=== PATIENT | male | born 1985 | race Caucasian/White ===

== ENCOUNTER 2022-03-05 14:50 | Emergency (ER) | payer OTHER, SELFPAY ==
[2022-03-05] VITALS (12 sets, daily range): BP systolic 114–129; BP diastolic 71–93; PULSE 62–75; RESP 10–20; TEMP 36.5–37.1; O2SAT 96–98
--- NOTE | ~2022-03-05 | XR_ITS ---
EXAMINATION: XR chest 1V portable 03/05/2022 15:42 INDICATION: Central chest pain PROCEDURE: AP portable chest COMPARISON: No prior studies for comparison. FINDINGS: The lungs are clear. The cardiomediastinal silhouette is within normal limits. There are no pleural effusions. There is no pneumothorax suspected. IMPRESSION: 1: NO ACUTE CARDIOPULMONARY DISEASE. Reviewed, dictated and finalized at location B.
--- NOTE | 2022-03-05 14:54 | ECG_ITS ---
Measurements Intervals [place] Rate: 76 P: 63 AK: 170 QRS: 78 QRSD: 105 T: 38 QT: 363 QTc: 409 Interpretive Statements SINUS RHYTHM WITH SINUS ARRHYTHMIA NO PREVIOUS ECG AVAILABLE FOR COMPARISON Electronically Signed On 03-05-2022 20:30:58 CDT by Lorie De La Garza M.D.
--- NOTE | 2022-03-05 15:07 | ED.CHESTPAIN ---
HPI - Chest Pain General Chief Complaint: Chest Pain Stated Complaint: chest pain Time Seen by Provider: 03/05/22 15:08 Source: patient Mode of arrival: ambulatory History of Present Illness HPI narrative: 36-year-old male a history of vaping, multiple stresses( going through a divorce, stressful work) has been having -- substernal chest pain off and on for the past 3-4 weeks. Pain is unprovoked and occasionally radiates to his left jaw. No nausea/ vomiting. No shortness of breath. Pain usually resolves within 15 minutes. -- Today the patient developed substernal chest pain which was unprovoked, nonradiating and without any lightheadedness/shortness of breath. By the time the patient reached the ER pain had decreased considerably. MD complaint: chest pain Onset (ago): hour(s) ( Started 2 hours ago. currently pain-free) Timing of current episode: episodic Prior episodes: Yes Onset: during rest Pain location: substernal Pain radiation: neck Severity: moderate Pain scale (0-10): 7 Quality: heaviness and fullness Relieving factors: nothing Exacerbating factors: nothing Risk Factors Coronary artery disease risk factors: smoking history Thoracic aortic dissection risk factors: none Related Data Home Medications Medication Instructions Recorded Confirmed No Home Medications 03/05/22 03/05/22 Allergies Allergy/AdvReac Type Severity Reaction Status Date / Time Shrimp Allergy Unknown Swelling Uncoded 03/05/22 15:01 of Lip/Tongue/Throat Review of Systems Review of Systems: All systems reviewed & are unremarkable except as noted in HPI and below Constitutional: Constitutional: Reports as per HPI and Reports no additional constitutional complaints Eyes: Eyes: Reports as per HPI and Reports no additional eye complaints ENT: Reports system reviewed and no additional complaints, except as documented and Reports as per HPI Cardiovascular: Cardiovascular: Reports as per HPI, Reports no additional cardiovascular complaints and Reports chest pain Respiratory: Respiratory: Reports as per HPI and Reports no additional respiratory complaints Gastrointestinal: Gastrointestinal: Reports as per HPI and Reports no additional gastrointestinal complaints Genitourinary: Genitourinary: Reports no additional male genitourinary complaints and Reports as per HPI Musculoskeletal: Musculoskeletal: Reports no additional musculoskeletal complaints and Reports as per HPI Integumentary/Breasts: Skin/Breast: Reports system reviewed and no additional complaints, except as docu and Reports as per HPI Neurologic: Reports system reviewed and no additional complaints, except as documented and Reports as per HPI Psychiatric: Psychiatric: Reports no additional psychiatric complaints and Reports as per HPI Endocrine: Endocrine: Reports no additional endocrine complaints and Reports as per HPI Hematologic/Lymphatic: Hematologic/Lymphatic: Reports no additional hematologic/lymphatic complaints and Reports as per HPI Allergic/Immunologic: Allergic/Immunologic: Reports no additional allergic/immunologic complaints and Reports as per HPI Exam Const: General: cooperative, healthy appearing, comfortable, no acute distress and anxious Orientation/consciousness: oriented to person, oriented to place and oriented to time Limitations: no limitations HENMT: Head: normal to inspection Ears: hearing grossly normal bilaterally and external ears normal General nose exam: Normal external nose present Face and sinus: normal facial exam and sinuses nontender Mouth: Yes Normal oral and palatal mucosa present, Yes lip normal, Yes tongue normal and Yes moist mucous membranes abnormal Throat: posterior oropharynx normal Eyes: General: appearance normal, both eyes and all related structures Alignment and Position: alignment normal Periorbital: periorbital findings normal Eyelids: eyelids normal Conjunctivae: conjunctivae normal Sclera: sclerae micaela
[2022-03-05 15:38] LABS: Basophils Absolute Auto 0.03 K/mm3 (0.00-0.10); Basophils Percent Auto 0.5 % (0.0-1.0); Eosinophils Absolute Auto 0.27 K/mm3 (0.02-0.50); Eosinophils Percent Auto 4.1 % (1.0-6.0); Hematocrit 46.2 % (40.0-54.0); Hemoglobin 15.9 g/dL (14.0-18.0); Immature Granulocyte Absolute 0.01 K/mm3 (0.00-0.00); Immature Granulocyte Percent A 0.2 % (0.0-0.0); Lymphocytes Absolute Auto 1.66 K/mm3 (1.10-4.50); Lymphocytes Percent Auto 25.4 % (18.0-42.0); Mean Corpuscular HGB Conc 34.4 g/dL (32.0-36.0); Mean Corpuscular Hemoglobin 30.8 pg (27.0-31.0); Mean Corpuscular Volume 89.4 fL (78.0-102.0); Mean Platelet Volume 8.8 fl (8.7-11.0); Monocytes Absolute Auto 0.51 K/mm3 (0.10-0.90); Monocytes Percent Auto 7.8 % (2.0-11.0); Neutrophils Absolute Auto 4.1 K/mm3 (1.7-7.2); Platelet Count Result 244 K/mm3 (150-420); Red Blood Count 5.17 M/mm3 (4.70-6.10); Red Cell Distribution Width 12.7 % (11.6-14.4); White Blood Count 6.5 K/mm3 (4.8-10.8)
[2022-03-05 15:52] LABS: Prothrombin Time 10.6 Seconds (9.50-12.10)
--- NOTE | 2022-03-05 15:55 | PC.NURSE ---
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 Clarified their conversation. 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
[2022-03-05 16:04] LABS: Alanine Aminotransferase 23 U/L (16-63); Albumin Level 3.7 g/dL (3.4-5.0); Alkaline Phosphatase 76 U/L (46-116); Anion Gap 9 mmol/L (8-16); Aspartate Amino Transferase 19 U/L (15-37); Bilirubin,Total 0.3 mg/dL (0.00-1.00); Blood Urea Nitrogen 8 mg/dL (7-18); Carbon Dioxide 27 mmol/L (21-32); Chloride 104 mmol/L (98-108); Estimated CRCL calculation 109 ml/min; Estimated Glomerular Filt Rate > 60; Glucose 98 mg/dL (70-99); Lipase 110 U/L (73-393); Osmolality Calculated 288 mOsm/kg (285-295); Potassium 3.7 mmol/L (3.5-5.1); Sodium 140 mmol/L (136-145); Thyroid Stimulating Hormone 1.44 uIU/mL (0.36-3.74); Total Protein 6.9 g/dL (6.4-8.2); Troponin I 5.3 ng/L (0.00-60.4)
== END 2022-03-05 16:35 | disposition home or self-care (01) ==
PROVIDERS: Emergency Provider Internal Medicine Critical Care Medicine
DX: R07.9 Chest pain, unspecified (principal)
CPT/HCPCS: 36415; 71045; 80053; 83690; 84443; 84484; 85025; 85610; 85730; 93005; 99284

== ENCOUNTER 2022-11-24 18:46 | Emergency (ER) | payer OTHER, SELFPAY ==
[2022-11-24 18:52] VITALS: BP 134/74; PULSE 102; RESP 16; TEMP 36.7; O2SAT 100
--- NOTE | 2022-11-24 18:53 | ED.GENADULT ---
HPI - General Adult General Chief complaint: Urogenital-Male Stated complaint: Urinary Problem Source: patient and RN notes reviewed History of Present Illness HPI narrative: 37-year-old male presents to urgent care with complaints of right lower back pain x1 week. Patient denies any radiation of pain. Denies any abdominal pain, vomiting, or nausea. Denies any fevers or chills. Patient states he has had some discomfort with urination recently. Some parts of this dictation were generated by voice recognition software and may contain typographical and/or grammatical inaccuracies. Related Data Home Medications Medication Instructions Recorded Confirmed No Home Medications 03/05/22 03/05/22 Allergies Allergy/AdvReac Type Severity Reaction Status Date / Time Shrimp Allergy Unknown Swelling Uncoded 03/05/22 15:01 of Lip/Tongue/Throat Review of Systems Review of Systems: CONSTITUTIONAL: Denies fever, chills, or sweats. EYES: Denies visual changes, redness, or discharge. ENT: Denies otalgia and sore throat CARDIOVASCULAR: Denies chest pain, palpitations, or edema. RESPIRATORY: Denies cough or dyspnea. GASTROINTESTINAL: Denies abdominal pain, nausea, vomiting, or diarrhea. GENITOURINARY: Denies dysuria or hematuria. SKIN: Denies rash or itching. MUSCULOSKELETAL: Right lower back pain NEUROLOGIC: Denies headache, numbness, or weakness. PMFSH Comments At the time of my signature, I reviewed and agree with the nursing past medical, surgical, social, and family history. There is no relevant family history pertinent to the patient complaint. Exam Narrative: GENERAL: This is a well-nourished, well-developed patient, in no apparent distress. HEAD: normocephalic, atraumatic. EYES: PERRL. Sclera clear/white. Vision is grossly intact. EARS: External ears normal, auditory canals clear and without drainage, TMs normal without perforation. Hearing grossly intact. NOSE: External nose normal with no obvious nasal discharge, nares without redness, no rhinorrhea. THROAT: Mucous membranes moist, posterior pharynx clear. NECK: Neck supple, non-tender without lymphadenopathy, masses or thyromegaly. CARDIOVASCULAR: Regular rate and rhythm without murmurs, gallops, or rubs. RESPIRATORY: Clear to auscultation. Breath sounds equal bilaterally. No wheezes, rales, or rhonchi. GASTROINTESTINAL: Abdomen soft, non-tender, nondistended. Bowel sounds are active. No hepato-splenomegaly, or palpable masses. No guarding. SKIN: warm, intact with no suspicious lesions or rash, good texture and turgor. NEURO: awake, alert, and oriented to person, place and time. There were no obvious focal neurologic abnormalities. EXTREMITIES: No clubbing, cyanosis, or edema. No joint tenderness, effusion, or edema noted. BACK: Nontender without deformity or crepitance. No flank tenderness. Course Course Level of Care: Express Care Visit Vital Signs Vital signs: Vital Signs Temperature 98.1 F 11/24/22 18:52 Pulse Rate 102 H 11/24/22 18:52 Respiratory Rate 16 11/24/22 18:52 Blood Pressure 134/74 11/24/22 18:52 Pulse Oximetry 100 11/24/22 18:52 Oxygen Delivery Room Air 11/24/22 18:52 Temperature 98.1 F 11/24/22 18:52 Pulse Rate 102 H 11/24/22 18:52 Respiratory Rate 16 11/24/22 18:52 Blood Pressure 134/74 11/24/22 18:52 Pulse Oximetry 100 11/24/22 18:52 Oxygen Delivery Room Air 11/24/22 18:52 Reviewed Medical Decision Making MDM Narrative Medical decision making narrative: May take ibuprofen and/or Tylenol for pain. Control pain or worsening symptoms any to emergency department for further evaluation. Differential Diagnosis Differential Diagnosis: Low back strain, UTI, nephrolithiasis Vital Signs Vital Signs: Vital Signs Temperature 98.1 F 11/24/22 18:52 Pulse Rate 102 H 11/24/22 18:52 Respiratory Rate 16 11/24/22 18:52 Blood Pressure 134/74 11/24/22 18:52 Pulse Oximetry 100 11/24/22 18
== END 2022-11-24 19:17 | disposition home or self-care (01) ==
PROVIDERS: Emergency Provider Nurse Practitioner Family
DX: S39.012A Strain of muscle, fascia and tendon of lower back, initial encounter (principal); X58.XXXA Exposure to other specified factors, initial encounter
CPT/HCPCS: 81003; 99212; G0463

== ENCOUNTER 2022-12-13 19:12 | Emergency (ER) | payer OTHER, SELFPAY ==
[2022-12-13 19:41] VITALS: BP 130/89; PULSE 71; RESP 14; TEMP 36.2; O2SAT 99
--- NOTE | 2022-12-13 21:16 | PC.NURSE ---
pt states the pain is going away and has a reference at his house. pt walked out without being seen by
== END 2022-12-13 21:41 | disposition left against medical advice (07) ==
LOC: ANHED 21:20
DX: M79.671 Pain in right foot (principal)
CPT/HCPCS: 99199

== ENCOUNTER 2023-06-09 20:21 | Emergency (ER) | payer OTHER, SELFPAY ==
[2023-06-09 20:25] VITALS: BP 128/73; PULSE 76; RESP 20; TEMP 36.8; O2SAT 99
[2023-06-09] MEDS: FLUORESCEIN SOD 1 MG/STRIP EACH EYE (22:17)
[2023-06-09] MEDS: TETRACAINE HCL 0.5% OPHTH SOLN 4 ML BTL 1 DROP EACH EYE (22:17)
[2023-06-09 22:26] VITALS: BP 130/91; PULSE 62; RESP 16; O2SAT 100
--- NOTE | 2023-06-09 22:53 | ED.EYEPROB ---
HPI - Eye Problem General Chief complaint: Eye Problems Stated complaint: punched self in L. eye. difficulty seeing Time Seen by Provider: 06/09/23 21:49 History of Present Illness HPI Narrative: 38-year-old male reports for evaluation for left eye pain. Patient states prior to arrival, he was moving a cart or box off of the back of the trailer, his hand slipped and he accidentally punched himself in the eye. He thinks his nail scratched his eye. He is reporting a foreign body sensation and photophobia and clear drainage. He does not wear contacts. Related Data Allergies Allergy/AdvReac Type Severity Reaction Status Date / Time Shrimp Allergy Unknown Swelling Uncoded 12/13/22 19:15 of Lip/Tongue/Throat Review of Systems Review of Systems: CONSTITUTIONAL: Denies fever, chills EYES: See HPI ENT: Denies rhinorrhea, congestion, sore throat, or otalgia. CARDIOVASCULAR: Denies chest pain, palpitations, or edema. RESPIRATORY: Denies cough or dyspnea. GASTROINTESTINAL: Denies abdominal pain, nausea, vomiting, or diarrhea. GENITOURINARY: Denies dysuria or hematuria. SKIN: Denies rash or itching. MUSCULOSKELETAL: Denies back pain, joint pain, or myalgia. NEUROLOGIC: Denies headache, numbness, dizziness, or weakness. PSYCHIATRIC: Denies anxiety or depression. Exam Narrative: GENERAL: Well-appearing, in no acute distress. HEAD: Normocephalic EYES: PERRLA, EOMI. Peripheral vision intact. Tetracaine and fluorescein applied showing a corneal abrasion to the left eye. No foreign bodies visualized. No Mayra sign. Clear tearing and injected sclera. ENT: Nares clear. Mucous membranes moist. Oropharynx without tonsillar hypertrophy exudate or other lesions. NECK: Supple. CHEST: No respiratory distress. Clear to auscultation, no adventitious breath sounds. HEART: Regular rate and rhythm. No murmur heard. Normal peripheral pulses. EXTREMITIES: Normal range of motion. No edema. SKIN: Warm, dry, no rash. NEURO: No focal deficits. Alert and oriented x3. PSYCH: Normal mood and affect. Course Vital Signs Vital signs: Vital Signs Temperature 98.2 F 06/09/23 20:25 Pulse Rate 76 06/09/23 20:25 Respiratory Rate 20 06/09/23 20:25 Blood Pressure 128/73 06/09/23 20:25 Pulse Oximetry 99 06/09/23 20:25 Oxygen Delivery Room Air 06/09/23 20:25 Temperature 98.2 F 06/09/23 20:25 Pulse Rate 62 06/09/23 22:26 Respiratory Rate 16 06/09/23 22:26 Blood Pressure 130/91 H 06/09/23 22:26 Pulse Oximetry 100 06/09/23 22:26 Oxygen Delivery Room Air 06/09/23 20:25 MDM - Eye Problem MDM Narrative Medical decision making narrative: 38-year-old male reports for evaluation for left eye pain after he excellently scratched his dye prior to arrival. Exam significant for corneal abrasion. No Mayra sign. No foreign body. He does not wear contacts. Patient was provided erythromycin ointment and [facility] follow-up. Encouraged him to call tomorrow to schedule appointment for close follow-up. Erythromycin and [place] sent to the pharmacy for breakthrough pain. Strict ED return precautions discussed. He is agreeable to plan verbalized understanding. Discharged in stable condition. Medical Records Attestation: I reviewed the patient's medical records. Discharge Plan Discharge Clinical Impression: Corneal abrasion Qualifiers: Encounter type: initial encounter Laterality: left Qualified Code(s): S05.02XA - Injury of conjunctiva and corneal abrasion without foreign body, left eye, initial encounter Patient Disposition: Home, Self-Care Condition: Stable Instructions: Antibiotic Form, Corneal Abrasion (DC) Additional Instructions: You were evaluated emergency department for pain in your eye. Your exam is consistent with corneal abrasion. Please use the antibiotic ointment I have given you as directed and follow-up with the bicycle service technician tomorrow as discussed at [employer]
[2023-06-09] MEDS: ERYTHROMYCIN OPHTH OINTMENT 1 GM TUBE 1 APPLIC EACH EYE (23:09)
== END 2023-06-09 23:22 | disposition home or self-care (01) ==
PROVIDERS: Emergency Provider Physician Assistant; PCP Family Medicine
DX: S05.02XA Injury of conjunctiva and corneal abrasion without foreign body, left eye, initial encounter (principal); W22.8XXA Striking against or struck by other objects, initial encounter
CPT/HCPCS: 99283; A9270